=== PATIENT | male | born 1960 | race Caucasian/White ===

== ENCOUNTER → 2016-02-24 | Outpatient (CLI) | payer BC ==
[2016-02-25 15:10] LABS: A/G RATIO 0.91 (()); ALB PEP SER 3.6 g/dL (3.4-4.7); ALP1 GLOB 0.2 g/dL (0.1-0.3); BETA GLOBS 0.9 g/dL (0.7-1.2); GAMMA GLOBS 1.8 g/dL (0.6-1.6); TOT PRT SERUM 7.5 g/dL (6.3 - 7.9)
[2016-02-26 07:18] LABS: IMPRESSION SEE COMMENTS (())
== END ==
LOC: MOB LAB 09:44
PROVIDERS: ATTEND Internal Medicine
DX: R77.1 Abnormality of globulin (principal)
CPT/HCPCS: 36415; 82040; 84155; 84165; 86334